=== PATIENT | female | born 1990 ===

== ENCOUNTER 2020-12-08 13:41 | Outpatient (CLI) | payer OTHER ==
[2020-12-08] MEDS ORDERED: GADOTERATE 5 MMOL/10 ML VIAL ONE (14:00)
[2020-12-08] MEDS ORDERED: OMNIPAQUE 300 MG/ML, 10ML VIAL ONE (14:00)
[2020-12-08] MEDS ORDERED: ROPivacaine/PF 0.2%, 10 ML ONE (14:08)
[2020-12-08] MEDS ORDERED: LIDOCAINE-MPF 1%, 5ML ONE (14:08)
== END 2020-12-08 23:59 | disposition home or self-care (01) ==
LOC: RAD 13:41
PROVIDERS: ATTEND Orthopaedic Surgery Sports Medicine
DX: S43.431A Superior glenoid labrum lesion of right shoulder, initial encounter (principal); X58.XXXA Exposure to other specified factors, initial encounter; Y93.89 Activity, other specified; Y92.89 Other specified places as the place of occurrence of the external cause; Y99.8 Other external cause status
CPT/HCPCS: 23350; 73040; 73222; A9575; J2795; Q9967